=== PATIENT | male | born 1960 | race Caucasian/White ===

== ENCOUNTER 2021-02-12 13:09 | Emergency (ER) | payer SELFPAY ==
[~2021-02-12] VITALS: Ht 170.2 cm; Wt 59.0 kg
[2021-02-12 13:35] LABS: BASOPHILS % 0.8 % (0.0-1.0); EOSINOPHILS # (AUTO) 0.2 (0.0-0.4); HEMATOCRIT 30.8 % (38.2-49.6); HEMOGLOBIN 9.6 g/dL (14.0-18.0); LYMPHOCYTES # (AUTO) 0.4 (1.0-3.2); LYMPHOCYTES % 29.2 % (18.0-39.1); MEAN CORPUSCULAR HEMOGLOBIN 30.3 pg (28-32); MEAN CORPUSCULAR HGB CONC 31.2 g/dL (31-35); MEAN CORPUSCULAR VOLUME 97.2 fL (81-99); MONOCYTES # (AUTO) 0.2 (0.2-0.8); MONOCYTES % 14.2 % (4.4-11.3); NEUTROPHILS # (AUTO) 0.4 (2.1-6.9); NEUTROPHILS % 35.8 % (38.7-80.0); PLATELET COUNT 54 x10e3/uL (140-360); RED BLOOD COUNT 3.17 x10e6/uL (4.3-5.7)
[2021-02-12 14:17] LABS: ALANINE AMINOTRANSFERASE 38 IU/L (0-55); ALBUMIN 2.3 g/dL (3.5-5.0); ALBUMIN/GLOBULIN RATIO 0.5 (0.8-2.0); ALKALINE PHOSPHATASE 274 IU/L (40-150); ANION GAP 10.1 mmol/L (8-16); BLOOD UREA NITROGEN 25 mg/dL (7-26); BUN/CREATININE RATIO 41 (6-25); CALCIUM 8.4 mg/dL (8.4-10.2); CARBON DIOXIDE 25 mmol/L (22-29); CHLORIDE 106 mmol/L (98-107); CREATININE, SERUM 0.61 mg/dL (0.72-1.25); EST GLOMERULAR FILTRATION RATE > 60 ML/MIN (60-); GLUCOSE 118 mg/dL (74-118); POTASSIUM 4.1 mmol/L (3.5-5.1); SODIUM 137 mmol/L (136-145)
[2021-02-12 15:54] LABS: BAND NEUTROPHILS % (MANUAL) 2 %; EOSINOPHILS % (MANUAL) 20 % (0-7); LYMPHOCYTES % (MANUAL) 24 % (19-48); MONOCYTES % (MANUAL) 24 % (3.4-9.0); NEUTROPHILS % (MANUAL) 28 % (40-74)
[2021-02-12 15:55] LABS: RBC MORPHOLOGY COMMENT NORMAL
[2021-02-12 15:56] LABS: PLATELET ESTIMATE MARKEDLY DECREASED; PLATELET MORPHOLOGY COMMENT NORMAL
[2021-02-12 18:15] VITALS: BP 142/77
== END 2021-02-12 18:19 ==
LOC: EDBD 13:09 → ER 13:44
DX: M25.561 Pain in right knee (principal); S80.811A Abrasion, right lower leg, initial encounter; W18.30XA Fall on same level, unspecified, initial encounter; Y92.128 Other place in nursing home as the place of occurrence of the external cause; B20 Human immunodeficiency virus [HIV] disease; B19.20 Unspecified viral hepatitis C without hepatic coma
CPT/HCPCS: 36415; 70450; 71045; 72125; 80053; 82550; 84484; 85025; 93005; 99284

== ENCOUNTER 2021-03-15 10:19 | Emergency (ER) | payer MEDICARE ==
[~2021-03-15] VITALS: Ht 170.2 cm; Wt 59.0 kg
== END 2021-03-15 13:35 | disposition home or self-care (01) ==
LOC: ER 10:44
DX: S00.83XA Contusion of other part of head, initial encounter (principal); S82.001A Unspecified fracture of right patella, initial encounter for closed fracture; Y04.8XXA Assault by other bodily force, initial encounter; Y92.128 Other place in nursing home as the place of occurrence of the external cause; J44.9 Chronic obstructive pulmonary disease, unspecified; B19.20 Unspecified viral hepatitis C without hepatic coma; B20 Human immunodeficiency virus [HIV] disease; F03.90 Unspecified dementia, unspecified severity, without behavioral disturbance, psychotic disturbance, mood disturbance, and anxiety; F25.9 Schizoaffective disorder, unspecified
CPT/HCPCS: 70450; 72125; 99284

== ENCOUNTER 2021-05-08 14:49 | Emergency (ER) | payer MEDICARE ==
[~2021-05-08] VITALS: Ht 170.2 cm; Wt 59.0 kg
[2021-05-08 17:55] VITALS: BP 134/62
== END 2021-05-08 17:56 | disposition other institution (70) ==
LOC: ER 15:58
DX: S06.5X0A Traumatic subdural hemorrhage without loss of consciousness, initial encounter (principal); W07.XXXA Fall from chair, initial encounter; Y93.89 Activity, other specified; J44.9 Chronic obstructive pulmonary disease, unspecified; B19.20 Unspecified viral hepatitis C without hepatic coma; B20 Human immunodeficiency virus [HIV] disease; F03.90 Unspecified dementia, unspecified severity, without behavioral disturbance, psychotic disturbance, mood disturbance, and anxiety; F25.9 Schizoaffective disorder, unspecified
CPT/HCPCS: 70450; 72125; 99284

== ENCOUNTER 2021-06-14 22:50 | Emergency (ER) | payer OTHER, MEDICARE ==
[~2021-06-14] VITALS: Ht 170.2 cm; Wt 59.0 kg
[2021-06-15 00:47] VITALS: BP 118/69
== END 2021-06-15 01:50 ==
LOC: ER 23:04
DX: S00.03XA Contusion of scalp, initial encounter (principal); W05.0XXA Fall from non-moving wheelchair, initial encounter; Y92.129 Unspecified place in nursing home as the place of occurrence of the external cause
CPT/HCPCS: 70450; 99283

== ENCOUNTER 2021-12-02 08:21 | Inpatient (IN) | payer OTHER ==
[~2021-12-02] VITALS: Ht 185.4 cm; Wt 77.1 kg
[2021-12-02] MEDS ORDERED: Vancomycin IV 1 GM in SODIUM CHLORIDE 0.9% 250ML 250 ML IV STA ×2 (08:43→10:01)
[2021-12-02] MEDS ORDERED: CEFEPIME 1 GM in SODIUM CHLORIDE 0.9% 50ML 50 ML IV ONE (08:45)
[2021-12-02] MEDS ORDERED: LACTATED RINGER'S 1,000 ML INJ ONE (09:00)
[2021-12-02 09:12] LABS: BASOPHILS % 0.4 % (0.0-1.0); EOSINOPHILS % 0.8 % (0.0-6.0); HEMATOCRIT 32.7 % (38.2-49.6); HEMOGLOBIN 9.7 g/dL (14.0-18.0); LYMPHOCYTES # (AUTO) 0.5 (1.0-3.2); LYMPHOCYTES % 19.5 % (18.0-39.1); MEAN CORPUSCULAR HEMOGLOBIN 32.1 pg (28-32); MEAN CORPUSCULAR HGB CONC 29.7 g/dL (31-35); MEAN CORPUSCULAR VOLUME 108.3 fL (81-99); MONOCYTES # (AUTO) 0.2 (0.2-0.8); MONOCYTES % 6.9 % (4.4-11.3); NEUTROPHILS # (AUTO) 1.8 (2.1-6.9); NEUTROPHILS % 71.2 % (38.7-80.0); PLATELET COUNT 80 x10e3/uL (140-360); RED BLOOD COUNT 3.02 x10e6/uL (4.3-5.7); RED CELL DISTRIBUTION WIDTH 18.3 % (11.7-14.4)
[2021-12-02 09:25] LABS: INR 1.44; PROTHROMBIN TIME 18.5 seconds (11.9-14.5)
[2021-12-02 09:40] LABS: CLARITY,URINE SL CLOUDY (CLEAR); COLOR,URINE ORANGE (YELLOW); KETONES,URINE NEGATIVE (NEGATIVE); LEUKOCYTE ESTERASE ,URINE NEGATIVE (NEGATIVE); NITRITE,URINE NEGATIVE (NEGATIVE); PROTEIN,URINE DIPSTICK 1+ (NEGATIVE); URINE UROBILINOGEN >=8 mg/dL (0.2 - 1)
[2021-12-02 09:41] LABS: ALBUMIN 1.5 g/dL (3.5-5.0); ALBUMIN/GLOBULIN RATIO 0.3 (0.8-2.0); ANION GAP 11.2 mmol/L (8-16); CALCIUM 8.7 mg/dL (8.4-10.2); CREATININE, SERUM 0.76 mg/dL (0.72-1.25); POTASSIUM 4.2 mmol/L (3.5-5.1)
[2021-12-02 09:43] LABS: BACTERIA,URINE MANY /HPF; EPITHELIAL CELLS,URINE FEW /LPF; RBC,URINE >50 /HPF (0-5); RENAL EPITHELIAL CELLS,URINE FEW
[2021-12-02] MEDS ORDERED: LACTULOSE SYRUP 20 GM/30 ML UDC PO ONE (09:45)
[2021-12-02] MEDS ORDERED: ULTRAM50 MG PO (09:52)
[2021-12-02] MEDS ORDERED: SERTRALINE HCL50 MG PO (09:52)
[2021-12-02] MEDS ORDERED: FOLIC ACID0.4 MG PO (09:52)
[2021-12-02] MEDS ORDERED: ZITHROMAX500 MG PO (09:52)
[2021-12-02] MEDS ORDERED: PANTOPRAZOLE SO40 MG PO (09:52)
[2021-12-02] MEDS ORDERED: ZYPREXA5 MG PO (09:52)
[2021-12-02] MEDS ORDERED: TYLENOL325 MG PO (09:52)
[2021-12-02] MEDS ORDERED: ATOVAQUONE750 MG/5 M PO (09:52)
[2021-12-02] MEDS ORDERED: ONDANSETRON ODT8 MG PO (09:52)
[2021-12-02] MEDS ORDERED: DEXAMETHASONE SOD PHOS 10 MG/1 ML VIAL IV ONE (12:15)
[2021-12-02] MEDS: LACTATED RINGER'S 1,000 ML INJ SCH ×2 (12:35→20:18)
[2021-12-02 14:33] VITALS: BP 106/68
[2021-12-02 14:35] VITALS: BP 106/68
[2021-12-02 14:43] VITALS: BP 106/68
[2021-12-02 16:00] VITALS: BP 109/74
[2021-12-02 19:00] VITALS: BP 103/69
[2021-12-02 23:00] VITALS: BP 110/74
[2021-12-03] VITALS (7 sets, daily range): BP systolic 96–132; BP diastolic 64–77
[2021-12-03 06:03] LABS: BASOPHILS % 0.6 % (0.0-1.0); HEMATOCRIT 30.2 % (38.2-49.6); HEMOGLOBIN 9.1 g/dL (14.0-18.0); LYMPHOCYTES # (AUTO) 0.3 (1.0-3.2); LYMPHOCYTES % 14.9 % (18.0-39.1); MEAN CORPUSCULAR HEMOGLOBIN 32.5 pg (28-32); MEAN CORPUSCULAR HGB CONC 30.1 g/dL (31-35); MEAN CORPUSCULAR VOLUME 107.9 fL (81-99); MONOCYTES # (AUTO) 0.1 (0.2-0.8); MONOCYTES % 3.3 % (4.4-11.3); NEUTROPHILS # (AUTO) 1.5 (2.1-6.9); NEUTROPHILS % 80.1 % (38.7-80.0); PLATELET COUNT 55 x10e3/uL (140-360); RED CELL DISTRIBUTION WIDTH 18.7 % (11.7-14.4)
[2021-12-03 06:23] LABS: ANION GAP 11.2 mmol/L (8-16); CALCIUM 8.6 mg/dL (8.4-10.2); CREATININE, SERUM 0.83 mg/dL (0.72-1.25); POTASSIUM 4.2 mmol/L (3.5-5.1)
[2021-12-03] MEDS: LACTATED RINGER'S 1,000 ML INJ SCH (06:51)
[2021-12-03 08:47] LABS: BAND NEUTROPHILS % (MANUAL) 1 %; EOSINOPHILS % (MANUAL) 1 % (0-7); LYMPHOCYTES % (MANUAL) 12 % (19-48); MONOCYTES % (MANUAL) 1 % (3.4-9.0); NEUTROPHILS % (MANUAL) 85 % (40-74); PLATELET ESTIMATE MODERATELY DECREASED; PLATELET MORPHOLOGY COMMENT NORMAL; RBC MORPHOLOGY COMMENT NORMAL
[2021-12-04 03:00] VITALS: BP 126/75
[2021-12-04] MEDS: LACTATED RINGER'S 1,000 ML INJ SCH (04:02)
[2021-12-04 07:26] LABS: HEMATOCRIT 31.4 % (38.2-49.6); HEMOGLOBIN 9.6 g/dL (14.0-18.0); LYMPHOCYTES # (AUTO) 0.2 (1.0-3.2); LYMPHOCYTES % 9.6 % (18.0-39.1); MEAN CORPUSCULAR HEMOGLOBIN 32.1 pg (28-32); MEAN CORPUSCULAR HGB CONC 30.6 g/dL (31-35); MONOCYTES # (AUTO) 0.1 (0.2-0.8); MONOCYTES % 4.5 % (4.4-11.3); NEUTROPHILS # (AUTO) 1.3 (2.1-6.9); PLATELET COUNT 58 x10e3/uL (140-360); RED BLOOD COUNT 2.99 x10e6/uL (4.3-5.7); RED CELL DISTRIBUTION WIDTH 18.5 % (11.7-14.4)
[2021-12-04 07:50] LABS: ANION GAP 10.2 mmol/L (8-16); CALCIUM 8.6 mg/dL (8.4-10.2); CREATININE, SERUM 0.66 mg/dL (0.72-1.25); POTASSIUM 4.2 mmol/L (3.5-5.1)
[2021-12-04 08:00] VITALS: BP 131/35
[2021-12-04 08:37] VITALS: BP 131/35
[2021-12-04] MEDS ORDERED: BALSAM PERU/CASTOR OIL 60 GM OINT...G. TP SCH (09:00)
[2021-12-04] MEDS ORDERED: ONDANSETRON HCL 4 MG ORAL DISINTEGRATING TAB PO PRN (10:00)
[2021-12-04] MEDS ORDERED: TRAMADOL HCL 50 MG TAB PO PRN (10:00)
[2021-12-04] MEDS ORDERED: ACETAMINOPHEN 325 MG TAB PO PRN (10:00)
[2021-12-04 10:50] LABS: BAND NEUTROPHILS % (MANUAL) 4 %; LYMPHOCYTES % (MANUAL) 5 % (19-48); MONOCYTES % (MANUAL) 3 % (3.4-9.0); NEUTROPHILS % (MANUAL) 88 % (40-74); NUCLEATED RED BLOOD CELLS 3
[2021-12-04 10:51] LABS: ANISOCYTOSIS MODERATE; PLATELET ESTIMATE MARKEDLY DECREASED; PLATELET MORPHOLOGY COMMENT NORMAL; POIKILOCYTOSIS SLIGHT; RBC MORPHOLOGY COMMENT ABNORMAL
[2021-12-04 12:00] VITALS: BP 146/87
[2021-12-04] MEDS ORDERED: OLANZAPINE 5 MG TAB PO SCH (17:00)
[2021-12-04] MEDS ORDERED: AMOXICILLIN/CLAVULANATE K 875 MG TAB PO SCH (21:00)
[2021-12-05] MEDS ORDERED: ATOVAQUONE 750 MG/5 ML SUSP PO SCH (09:00)
[2021-12-05] MEDS ORDERED: PANTOPRAZOLE SOD 40 MG TABEC PO SCH (09:00)
[2021-12-05] MEDS ORDERED: NON-FORMULARY MEDICATION (Folic Acid* 0.4 MG) PO SCH (09:00)
[2021-12-05] MEDS ORDERED: SERTRALINE HCL 50 MG TAB PO SCH (09:00)
[2021-12-05] MEDS ORDERED: FOLIC ACID 1 MG TAB PO SCH (09:00)
[2021-12-05] MEDS ORDERED: AZITHROMYCIN 250 MG TAB PO SCH (09:00)
== END 2021-12-04 17:35 | DRG 177 ==
LOC: ER 08:25 → ERHOLD 12:08 → IMCU 14:20
DX: U07.1 COVID-19 (principal); J12.82 Pneumonia due to coronavirus disease 2019; G93.41 Metabolic encephalopathy; N39.0 Urinary tract infection, site not specified; E87.0 Hyperosmolality and hypernatremia; L89.152 Pressure ulcer of sacral region, stage 2; R09.02 Hypoxemia; R62.7 Adult failure to thrive; Z68.22 Body mass index [BMI] 22.0-22.9, adult; Z88.8 Allergy status to other drugs, medicaments and biological substances; F20.9 Schizophrenia, unspecified; R06.03 Acute respiratory distress; K74.60 Unspecified cirrhosis of liver; I10 Essential (primary) hypertension; B95.2 Enterococcus as the cause of diseases classified elsewhere; Z21 Asymptomatic human immunodeficiency virus [HIV] infection status
CPT/HCPCS: 36415; 70450; 71045; 80048; 80053; 81001; 82140; 82948; 83605; 84484; 85025; 85610; 87040; 87086; 87186; 93005; 94799; 96361; 99251; 99285; J0692; J1100; J3370; J7050; J7121; U0002